=== PATIENT | male | born 1990 | race Caucasian/White ===

== ENCOUNTER 2017-07-20 13:51 | Emergency (ER) | payer SELFPAY ==
[~2017-07-20] VITALS: Ht 172.7 cm; Wt 87.2 kg
[2017-07-20 13:56] VITALS: BP 137/83
--- NOTE | 2017-07-20 14:00 | NUR ---
Received ALOX4 with pt c/o sore throat.
--- NOTE | 2017-07-20 14:02 | NUR ---
Patient ambulated to bed 03.
--- NOTE | 2017-07-20 14:04 | NUR ---
Dr. Thomas evaluating patient at bedside.
--- NOTE | 2017-07-20 14:15 | NUR ---
Patient discharged with v/s stable. Written and verbal after care instructions given and explained. Patient verbalized understanding. Ambulatory with steady gait. All questions addressed prior to discharge. Advised to follow up with PMD.
== END 2017-07-20 14:15 | disposition home or self-care (01) ==
LOC: MED 13:51
DX: B34.9 Viral infection, unspecified (principal); Z71.6 Tobacco abuse counseling; Z88.0 Allergy status to penicillin
CPT/HCPCS: 99281